=== PATIENT | female | born 1965 | race Caucasian/White ===

== ENCOUNTER 2019-08-24 17:41 | Emergency (ER) | payer MEDICAID, OTHER ==
[~2019-08-24] VITALS: Ht 162.6 cm; Wt 75.4 kg
[2019-08-24 18:04] VITALS: BP 182/120
== END 2019-08-24 19:45 | disposition home or self-care (01) ==
LOC: ER 17:42
DX: M79.601 Pain in right arm (principal); Z88.1 Allergy status to other antibiotic agents; Z88.6 Allergy status to analgesic agent; Z88.5 Allergy status to narcotic agent; Z79.899 Other long term (current) drug therapy; W18.39XA Other fall on same level, initial encounter; Y93.89 Activity, other specified; Y92.89 Other specified places as the place of occurrence of the external cause; Y99.8 Other external cause status
CPT/HCPCS: 29260; 73090; 99284

== ENCOUNTER 2019-12-09 09:59 | Inpatient (IN) | payer MEDICAID ==
[2019-12-04 14:46] LABS: BASOPHILS # (AUTO) 0.1 X10'3 (0-0.2); EOSINOPHILS # (AUTO) 0.3 X10'3 (0-0.9); EOSINOPHILS % (AUTO) 3.8 % (0-6); LYMPHOCYTES # (AUTO) 3.5 X10'3 (1.1-4.8); LYMPHOCYTES % (AUTO) 44.1 % (21-51); MEAN CORPUSCULAR HGB CONC 34.1 g/dL (33.0-36.5); MEAN PLATELET VOLUME 10.1 FL (7.4-10.4); MONOCYTES # (AUTO) 0.5 X10'3 (0-0.9); MONOCYTES % (AUTO) 5.9 % (2-12); NEUTROPHILS # (AUTO) 3.6 X10'3 (1.8-7.7); NEUTROPHILS % (AUTO) 45.2 % (42-75); PRE OP HEMATOCRIT 41.5 % (35.0-45.0); PRE OP HEMOGLOBIN 14.1 g/dL (12.0-16.0); PRE OP PLATELET COUNT 205 X10'3 (140-440); RED BLOOD COUNT 4.71 X10'6 (4.20-5.60); RED CELL DISTRIBUTION WIDTH 13.6 % (11.5-14.5)
[2019-12-04 15:01] LABS: ALBUMIN/GLOBULIN RATIO 1.1 (1.1-1.5); ALKALINE PHOSPHATASE 71 IU/L (46-116); BLOOD UREA NITROGEN 12 MG/DL (7-18); BUN/CREATININE RATIO 14.3 (6.6-38.0); CALCIUM 8.8 MG/DL (8.5-10.1); CHLORIDE 105 MMOL/L (99-107); CREATININE 0.84 MG/DL (0.40-0.90); PRE OP ALT 22 U/L (30-65); PRE OP ANION GAP 6 (8-16); PRE OP AST 13 U/L (10-37); PRE OP BILIRUB, TOTAL 0.6 MG/DL (0.0-1.0); PRE OP GLUCOSE 85 MG/DL (70-104); PRE OP POTASSIUM 3.9 MMOL/L (3.4-5.1); PRE OP SODIUM 141 MMOL/L (135-145); TOTAL CARBON DIOXIDE 29.6 MMOL/L (24-32); TOTAL PROTEIN 7.8 G/DL (6.4-8.2); eGFR 71 ML/MIN
[2019-12-09] VITALS (18 sets, daily range): BP systolic 106–142; BP diastolic 56–96
[~2019-12-09] VITALS: Ht 162.6 cm; Wt 73.9 kg
[2019-12-09] MEDS: ringers solution, lacted 1,000 ML IV SCH ×2 (05:00→21:18)
[~2019-12-09 09:59] MED LIST: HYDR-4353 PO; LISI10TA4 PO; NORMAL SALINE IV ONE; RIZA10TA27 PO; TRANEXAMIC ACID IV ONE; ceFAZolin 2gm in dextrose, iso 50 ML IV ONE; famotidine 20mg tablet PO ONE; tranexamic acid inj. 740 MG in normal saline 100ml IV soln 100 ML IV ONE; vancomycin 1,500 MG in NS 300ml IV soln IV ONE
--- NOTE | 2019-12-09 10:30 | NUR ---
LACTATED RINGERS BAG BARCODE WOULD NOT SCAN. MEDICATION ADMINISTERED ORDERED, ALL MED CHECKS COMPLETED PRIOR TO ADMINISTRATION.
[2019-12-09] MEDS ORDERED: ringers solution, lacted 1,000 ML IV SCH (10:42)
[2019-12-09] MEDS ORDERED: morphine 2 MG/ML inj. syringe IV PRN (10:45)
[2019-12-09] MEDS ORDERED: morphine 4 MG/ML inj SYRINge IV PRN (10:45)
[2019-12-09] MEDS ORDERED: proCHLORperazine 10 MG/2 ml inj IV PRN (10:45)
[2019-12-09] MEDS ORDERED: meperidine/PF 25mg/ml syringe IV PRN ×3 (10:45)
[2019-12-09] MEDS ORDERED: ondansetron/PF 4mg/2ml inj IV PRN ×2 (10:45→17:50)
[2019-12-09] MEDS ORDERED: ROPIVAcaine 0.5% (5mg/ml) 30ml vial ONE ×2 (13:24→14:30)
[2019-12-09] MEDS ORDERED: ketorolac trometh. 30mg/ml inj. ONE (13:24)
[2019-12-09] MEDS ORDERED: fentaNYL/PF 50MCG/1 ML 2ML syringe ONE (13:51)
[2019-12-09] MEDS ORDERED: MIDAZolam 1mg/ml 10ml vial ONE ×2 (13:51→15:11)
[2019-12-09] MEDS ORDERED: propofol inj 20 ML IV ONE (14:30)
[2019-12-09] MEDS ORDERED: diphenhydrAMINE 50 mg/ml inj ONE (14:50)
[2019-12-09] MEDS ORDERED: epiNEPHrine 1 mg/ml inj ONE (14:50)
[2019-12-09] MEDS ORDERED: ROPIVAcaine 0.2%/PF PUMP/bolus 550 ML ADDCANAL SCH (17:03)
[2019-12-09] MEDS ORDERED: ROPIVAcaine 0.2% (10 MG/5 ML) BOLUS INJECTION ADDCANAL PRN (17:05)
[2019-12-09] MEDS ORDERED: diphenhydrAMINE 25mg capsule PO PRN ×2 (17:50)
[2019-12-09] MEDS ORDERED: acetaminophen 325mg tablet PO PRN (17:50)
[2019-12-09] MEDS ORDERED: HYDROmorphone 1 mg/ml syringe IV PRN (17:50)
[2019-12-09] MEDS ORDERED: bisacodyl 10mg suppository rectal RC PRN (17:50)
[2019-12-09] MEDS ORDERED: oxyCODONE IR 5mg (immed. release) tablet PO PRN ×2 (17:50)
[2019-12-09] MEDS ORDERED: HYDROmorphone inj. 0.5 MG/0.5 ML DISP.SYRIN IV PRN (17:50)
[2019-12-09] MEDS ORDERED: magnesium hydroxide 30ml (MOM) UD suspension PO PRN (17:50)
--- NOTE | 2019-12-09 17:56 | NUR ---
RECEIVED FROM OR VIA BED WITH OHTF ACCOMPANIED BY ANESTHESIOLOGIST DR MARIN, REPORT GIVEN. PT DROWSY BUT AROUSES EASILY AND DENIES PAIN AT THIS TIME.20 GAUGE PIV L HAND PATENT AND RUNNING LR AT 100 ML/HR. F/C DRAINING CLEAR YELLOW URINE. R KNEE ACTICOTE AND VICENTE DRESSING CDI WITH KNEE WRAP AND POWDER PACK IN PLACE. P PULSES PALPABLE, BRISK CAP REFILL, SPINAL SENSATION AT KNEES, SKIN PINK AND WARM, ABD SOFT, VSS, SCDS APPLIED, RESTING COMFORTABLY.
[2019-12-09] MEDS: potassium cl 20mEq in 1/2 NS 1,000 ML IV SCH ×2 (17:57→23:32)
[2019-12-09 18:19] LABS: APPEARANCE,SYNOVIAL FLUID BLOODY; COLOR,SYNOVIAL FLUID RED; SYN RBC 133000 /CU MM (0); SYN WBC 156 /CU MM (0-200)
[2019-12-09 18:27] LABS: SYNOVIAL LINING CELLS FEW
--- NOTE | 2019-12-09 19:06 | NUR ---
TRANSFERRED VIA BED WITH OHTF ACCOMPANIED BY MYSELF, REPORT GIVEN. PT AWAKE AND ALERT AND DENIES PAIN AT THIS TIME.20 GAUGE PIV L HAND PATENT AND RUNNING LR AT 100 ML/HR. F/C DRAINING CLEAR YELLOW URINE. R KNEE ACTICOTE AND VICENTE DRESSING CDI WITH KNEE WRAP AND POWDER PACK IN PLACE. P PULSES PALPABLE, BRISK CAP REFILL, SPINAL SENSATION AT KNEES, SKIN PINK AND WARM, ABD SOFT, VSS, SCDS APPLIED, RESTING COMFORTABLY. LEFT IN CARE OF [facility]ERCE
[2019-12-09] MEDS ORDERED: vancomycin/NS 1 GM ADD-VANTAGE 250 ML IV SCH (20:00)
[2019-12-09] MEDS ORDERED: tranexamic acid inj. 740 MG in normal saline 100ml IV soln 100 ML IV ONE (20:45)
[2019-12-09] MEDS ORDERED: sennosides 8.6mg tablet PO SCH (21:00)
[2019-12-09] MEDS: gabapentin 300mg capsule PO SCH (21:21)
[2019-12-09] MEDS: acetaminophen 325mg tablet PO SCH (21:22)
[2019-12-10] MEDS: ceFAZolin 1GM/D5W- ADD-VANTAGE 50 ML IV SCH ×2 (01:37→07:49)
[2019-12-10] MEDS: acetaminophen 325mg tablet PO SCH ×2 (01:37→07:49)
[2019-12-10 02:00] VITALS: BP 114/53
--- NOTE | 2019-12-10 05:00 | NUR ---
pt upset about door being shut and alarms not being answered. stated she used call light for 30 min without response from staff. call light only went on x1. reorinted to call lights not on bed and ability to contact staff through phone.
[2019-12-10 06:00] VITALS: BP 134/81
[2019-12-10 06:17] LABS: ANION GAP 6 (8-16); CHLORIDE 105 MMOL/L (99-107); POTASSIUM 4.1 MMOL/L (3.5-5.1); SODIUM 140 MMOL/L (135-145); TOTAL CARBON DIOXIDE 28.7 MMOL/L (24-32)
[2019-12-10 06:28] LABS: BASOPHILS % (AUTO) 0.1 % (0-1); EOSINOPHILS % (AUTO) 0 % (0-6); HEMATOCRIT 35.4 % (35.0-45.0); LYMPHOCYTES # (AUTO) 1.3 X10'3 (1.1-4.8); LYMPHOCYTES % (AUTO) 9.5 % (21-51); MEAN CORPUSCULAR HGB CONC 33.7 g/dL (33.0-36.5); MEAN CORPUSCULAR VOLUME 88.8 FL (78-98); MEAN PLATELET VOLUME 10.2 FL (7.4-10.4); MONOCYTES # (AUTO) 1.2 X10'3 (0-0.9); MONOCYTES % (AUTO) 8.5 % (2-12); NEUTROPHILS # (AUTO) 11.1 X10'3 (1.8-7.7); NEUTROPHILS % (AUTO) 81.9 % (42-75); PLATELET COUNT 185 X10'3 (140-440); RED BLOOD COUNT 3.99 X10'6 (4.20-5.60); RED CELL DISTRIBUTION WIDTH 13.5 % (11.5-14.5); WHITE BLOOD COUNT 13.5 X10'3 (4.5-11.0)
--- NOTE | 2019-12-10 06:34 | NUR ---
reported to days. noted pt already walking with PT and excited about surgery
[2019-12-10] MEDS: gabapentin 300mg capsule PO SCH (07:48)
[2019-12-10] MEDS ORDERED: ASPI-1 PO (08:19)
[2019-12-10] MEDS ORDERED: ONQPUMP ADDCANAL (08:19)
[2019-12-10] MEDS ORDERED: aspirin 325mg tablet PO SCH (08:30)
[2019-12-10] MEDS: potassium cl 20mEq in 1/2 NS 1,000 ML IV SCH (09:47)
[2019-12-11] MEDS ORDERED: acetaminophen 325mg tablet PO PRN (17:50)
== END 2019-12-10 11:20 | disposition home or self-care (01) | DRG 302 ==
LOC: PAS 09:59 → EDSTATUS 12:45 → ORTHO 4S 17:50
PROVIDERS: ADMIT Orthopaedic Surgery; ATTEND Orthopaedic Surgery
PROC: 3E0T3BZ Introduction of Anesthetic Agent into Peripheral Nerves and Plexi, Percutaneous Approach (ICD-10-PCS; 2019-12-09)
PROC: 0SRC0J9 Replacement of Right Knee Joint with Synthetic Substitute, Cemented, Open Approach (ICD-10-PCS; principal; 2019-12-09 14:15)
DX: T84.092A Other mechanical complication of internal right knee prosthesis, initial encounter (principal); M17.11 Unilateral primary osteoarthritis, right knee; M24.561 Contracture, right knee; M25.561 Pain in right knee; Z96.651 Presence of right artificial knee joint; I10 Essential (primary) hypertension; G43.909 Migraine, unspecified, not intractable, without status migrainosus; Z20.828 Contact with and (suspected) exposure to other viral communicable diseases; Y83.8 Other surgical procedures as the cause of abnormal reaction of the patient, or of later complication, without mention of misadventure at the time of the procedure; Y92.89 Other specified places as the place of occurrence of the external cause
CPT/HCPCS: 36415; 80051; 80053; 85025; 87070; 87075; 87081; 87102; 87635; 89051; 93005; 97110; 97116; 97161; 97530; G0378; J0171; J0690; J1170; J1200; J1885; J2250; J2405; J2704; J2795; J3010; J3370; J3480; J7040; J7120

== ENCOUNTER 2023-08-24 05:39 | Day surgery (SDC) | payer MEDICAID ==
[2023-08-17 10:30] LABS: BASOPHILS % (AUTO) 0.3 % (0-1); EOSINOPHILS # (AUTO) 0.1 X10'3 (0-0.9); EOSINOPHILS % (AUTO) 0.8 % (0-6); HEMATOCRIT 42.4 % (35.0-45.0); HEMOGLOBIN 14.3 g/dl (12.0-16.0); LYMPHOCYTES # (AUTO) 2.4 X10'3 (1.1-4.8); LYMPHOCYTES % (AUTO) 30.9 % (21-51); MEAN CORPUSCULAR HEMOGLOBIN 29.9 PG (27.0-31.0); MEAN CORPUSCULAR HGB CONC 33.6 g/dL (33.0-36.5); MEAN CORPUSCULAR VOLUME 89.1 FL (78-98); MEAN PLATELET VOLUME 9.8 FL (7.4-10.4); MONOCYTES # (AUTO) 0.7 X10'3 (0-0.9); MONOCYTES % (AUTO) 8.7 % (2-12); NEUTROPHILS # (AUTO) 4.6 X10'3 (1.8-7.7); NEUTROPHILS % (AUTO) 59.3 % (42-75); PLATELET COUNT 211 X10'3 (140-440); RED BLOOD COUNT 4.76 X10'6 (4.20-5.60); RED CELL DISTRIBUTION WIDTH 14.4 % (11.5-14.5); WHITE BLOOD COUNT 7.7 X10'3 (4.5-11.0)
[2023-08-17 10:31] LABS: BILIRUBIN,URINE NEGATIVE (Neg); CLARITY,URINE CLEAR (Clear); COLOR,URINE YELLOW (Yellow); GLUCOSE, URINE NEGATIVE (Neg); KETONES,URINE NEGATIVE (Neg); LEUKOCYTE ESTERASE ,URINE NEGATIVE (Neg); NITRITES, URINE NEGATIVE (Neg); OCCULT BLOOD,URINE NEGATIVE (Neg); PROTEIN,URINE NEGATIVE (Neg); UROBILINOGEN,URINE 0.2 E.U/dL (0.2-1.0)
[2023-08-17 10:34] LABS: UA COLLECTION TYPE NON-SPECIFIED
[2023-08-17 11:08] LABS: ALANINE AMINOTRANSFERASE 14 U/L (12-78); ALBUMIN 3.6 G/DL (3.4-5.0); ALKALINE PHOSPHATASE 51 IU/L (46-116); ANION GAP 6 (8-16); ASPARTATE AMINO TRANSFERASE 8 U/L (10-37); BILIRUBIN,TOTAL 0.5 MG/DL (0.1-1.0); BLOOD UREA NITROGEN 15 MG/DL (7-18); BUN/CREATININE RATIO 14.7 (10.0-20.0); CALCIUM 8.4 MG/DL (8.5-10.1); CHLORIDE 104 MMOL/L (99-107); CREATININE 1.02 MG/DL (0.40-0.90); GLUCOSE 87 MG/DL (70-104); SODIUM 138 MMOL/L (135-145); TOTAL CARBON DIOXIDE 28.1 MMOL/L (24-32); TOTAL PROTEIN 7.2 G/DL (6.4-8.2); eGFR 56 ML/MIN
[2023-08-24] VITALS (7 sets, daily range): BP systolic 119–155; BP diastolic 72–98; PULSE 61–81; RESP 12–19; TEMP 97.6; O2SAT 93–99
[~2023-08-24] VITALS: Ht 162.6 cm; Wt 81.2 kg
[~2023-08-24 05:39] MED LIST changes: +ASPI-529 PO; +BIMA2.5D EACHEYE; +CEPH-585 PO; +EPIN0.3A3 IM; +ESTR-31; +LIDOcaine 2% (20mg/ml) 5ml vial ONE; -LISI10TA4 PO; +LISI40TA13 PO; +LORA10TA7 PO; +METO-395 PO; -NORMAL SALINE IV ONE; +OXYC5TAB2 PO; +PANT40TA54 PO; +RIZA-5 PO; -RIZA10TA27 PO; +SEMA0.253 SQ; -TRANEXAMIC ACID IV ONE; +VITAMIN PO; +acetaminophen 1,000mg/100ml IV 100 ML IV ONE; -ceFAZolin 2gm in dextrose, iso 50 ML IV ONE; +cefazolin 2gm/D5W 100mL 100 ML IV ONE; +dexamethasone sod phosphate 4mg/ml inj. ONE; -famotidine 20mg tablet PO ONE; +fentaNYL/PF 50MCG/1 ML 2ML syringe ONE; +midazolam 1 mg/ML 2ml injection ONE; +ondansetron/PF 4mg/2ml inj ONE; +propofol inj 20 ML IV ONE; +rocuronium 10mg/ml inj IV ONE; +sugammadex 200mg/2ml injection IV ONE; -tranexamic acid inj. 740 MG in normal saline 100ml IV soln 100 ML IV ONE; -vancomycin 1,500 MG in NS 300ml IV soln IV ONE
[2023-08-24] MEDS: famotidine 20mg tablet PO ONE (06:33)
[2023-08-24] MEDS: ringers solution, lacted 1,000 ML IV SCH (06:34)
[2023-08-24] MEDS ORDERED: BUPIVAcaine/PF 2.5mg/ml (0.25%) 10ml vial ONE (06:37)
[2023-08-24] MEDS ORDERED: rocuronium 10mg/ml inj IV ONE (07:10)
[2023-08-24] MEDS ORDERED: fentaNYL/PF 50MCG/1 ML 2ML syringe ONE (07:10)
[2023-08-24] MEDS ORDERED: midazolam 1 mg/ML 2ml injection ONE (07:10)
[2023-08-24] MEDS ORDERED: cloNIDine hcl/PF 100mcg/ml inj ONE (07:10)
[2023-08-24] MEDS ORDERED: propofol inj 20 ML IV ONE (07:10)
[2023-08-24] MEDS ORDERED: ROPIVAcaine 0.5% (5mg/ml) 30ml vial ONE (07:11)
[2023-08-24] MEDS ORDERED: sevoflurane 250ml liquid IH ONE (07:11)
[2023-08-24] MEDS ORDERED: dexamethasone sod phosphate 4mg/ml inj. ONE (07:51)
[2023-08-24] MEDS: bacitracin 15gm ointment TP ONE (07:51)
[2023-08-24] MEDS ORDERED: sugammadex 200mg/2ml injection IV ONE (08:27)
[2023-08-24] MEDS ORDERED: ringers solution, lacted 1,000 ML IV SCH (08:45)
[2023-08-24] MEDS ORDERED: proCHLORperazine 10 MG/2 ml inj IV PRN (08:45)
[2023-08-24] MEDS ORDERED: meperidine/PF 25mg/ml syringe IV PRN ×3 (08:45)
[2023-08-24] MEDS ORDERED: ondansetron/PF 4mg/2ml inj IV PRN (08:45)
[2023-08-24] MEDS ORDERED: morphine 4 MG/ML inj SYRINge IV PRN (08:45)
[2023-08-24] MEDS ORDERED: morphine 2 MG/ML inj. syringe IV PRN (08:45)
== END 2023-08-24 09:24 | disposition home or self-care (01) ==
LOC: PAS 05:39
PROVIDERS: ATTEND Podiatrist Foot & Ankle Surgery
DX: M76.62 Achilles tendinitis, left leg (principal); M92.62 Juvenile osteochondrosis of tarsus, left ankle; G89.18 Other acute postprocedural pain; I10 Essential (primary) hypertension; G47.30 Sleep apnea, unspecified; I20.9 Angina pectoris, unspecified; E66.9 Obesity, unspecified; K21.9 Gastro-esophageal reflux disease without esophagitis; G43.909 Migraine, unspecified, not intractable, without status migrainosus; H40.9 Unspecified glaucoma; Z87.891 Personal history of nicotine dependence; Z79.899 Other long term (current) drug therapy; Z96.651 Presence of right artificial knee joint; Z90.710 Acquired absence of both cervix and uterus; Z98.890 Other specified postprocedural states; Z68.30 Body mass index [BMI] 30.0-30.9, adult; Z88.1 Allergy status to other antibiotic agents; Z88.5 Allergy status to narcotic agent; Z88.6 Allergy status to analgesic agent
CPT/HCPCS: 27650; 27687; 28118; 36415; 64445; 64447; 73620; 80053; 81003; 82948; 85025; A6222; C1713; J0131; J0690; J0735; J1100; J2250; J2405; J2704; J2795; J3010; J3490; J7030; J7120; Z7506; Z7508; Z7512; 76000; A4215; A4618; A6253; A6449; A7000